=== PATIENT | female | born 1970 | race Caucasian/White ===

== ENCOUNTER → 2018-01-02 | Outpatient (CLI) | payer BC, OTHER ==
--- NOTE | 2018-01-02 17:31 | US ---
Procedure: US THYROID Exam Date: 01/02/2018 Ordering Provider: GERMÁN MELO Clinical Indication: THYROID MASS Comparison: None Technique: Real-time ultrasonography was obtained of the thyroid gland and customer relations representative images were recorded. Findings: The right lobe of the thyroid gland measures 4.8 x 1.4 x 1.5 cm . There are no suspicious nodules in the right lobe of the thyroid gland. The left lobe of the thyroid gland measures 4.9 x 1.2 x 0.8 cm . There are no suspicious nodules in the left lobe of the thyroid gland The thyroid isthmus is of normal thickness. There are no suspicious nodules in the thyroid isthmus. Impression: Negative thyroid ultrasound. Electronically signed by: Enrike Gonzalez MD 01/02/2018 5:30 PM CDT
== END ==
LOC: US 15:47
PROVIDERS: ATTEND Family Medicine
DX: E04.1 Nontoxic single thyroid nodule (principal)